=== PATIENT | male | born 1955 | race Caucasian/White ===

== ENCOUNTER 2024-11-30 23:01 | Inpatient (IN) | payer OTHER ==
[2024-11-30] MEDS ORDERED: ACETAMINOPHEN INJECTION 100 ML ONE (23:49)
[2024-11-30] MEDS: ACETAMINOPHEN 1000 MG/100 ML BAG IVPB ONE (23:51)
[2024-11-30] MEDS: SODIUM CHLORIDE 1,000 ML IV STA (23:51)
[2024-11-30 23:52] LABS: BG HCT 41.0 % (35.4-49); EOSINOPHIL % 0.0 % (0.8-7.0); EOSINOPHILS # 0.00 x10^3/uL (0.04-0.54); MEAN CELL VOLUME 93.8 fl (79.0-92.2); MEAN PLT VOLUME 11.8 fl (9.4-12.4); VENOUS BASE EXCESS -2.8 mmol/L (-2-2); VENOUS O2 SATURATION 68.7 % (70-80); VENOUS PCO2 32.7 mmHg (38-52); VENOUS PH 7.42 (7.310-7.410)
[2024-11-30 23:54] LABS: ABSOLUTE IMMATURE GRANULOCYTES 0.13 x10^3/uL (0.0-0.031); BASOPHILS # 0.02 x10^3/uL (0.01-0.08); MCHC 33.2 g/dl (32.3-36.5); MONOCYTE # 1.07 x10^3/uL (0.30-0.82); MONOCYTE % 6.0 % (5.3-12.2); RDW 12.0 % (12.2-16.4)
[2024-12-01 00:01] LABS: INR 1.28 (0.83-1.09); PROTHROMBIN TIME (PATIENT) 13.9 SEC (9.7-13.0)
[2024-12-01 00:04] LABS: ACTIVATED PTT 27.9 SECONDS (25.2-36.5)
[2024-12-01 00:18] LABS: CO2 21.0 mmol/L (21-32); GLUCOSE,RANDOM 223.0 mg/dL (74-106)
[2024-12-01 00:20] LABS: SGPT/ALT 32.0 U/L (13-61)
[2024-12-01 00:22] LABS: CREATININE 0.8 mg/dL (0.55-1.3); SGOT/AST 18.0 U/L (15-37)
[2024-12-01 00:23] LABS: TOT PROT 6.2 g/dl (6.4-8.2)
[2024-12-01 00:24] LABS: ALK PHOS 77.0 U/L (45-117)
[2024-12-01] MEDS ORDERED: CEFTRIAXONE 1 GM/50 ML BAG ONE (01:07)
[2024-12-01 01:10] LABS: URINE APPEARANCE CLEAR; URINE BILIRUBIN NEGATIVE (NEGATIVE); URINE COLOR YELLOW; URINE GLUCOSE (UA) 3+ (NEGATIVE); URINE KETONE 3+ (NEGATIVE); URINE LEUK ESTERASE NEGATIVE (NEGATIVE); URINE NITRITE NEGATIVE (NEGATIVE); URINE PROTEIN TRACE (NEGATIVE); URINE UROBILINOGEN 0.2 mg/dL (0.2-1.0)
[2024-12-01] MEDS: SODIUM CHLORIDE 1,000 ML IV STA (02:52)
[2024-12-01] MEDS: SODIUM CHLORIDE 500 ML IV STA ×3 (04:00→13:19)
[2024-12-01] MEDS: SODIUM CHLORIDE 0.9% 500 ML INFUS.BAG IV ONE (05:52)
[2024-12-01] MEDS ORDERED: NOREPINEPHRINE BITARTRATE 4 MG/4 ML ML IV ONE (06:34)
[2024-12-01] MEDS: NOREPINEPHRINE BITARTRATE 4,000 MCG in DEXTROSE 5%-WATER - 496 ML IV SCH (06:40)
[2024-12-01] MEDS ORDERED: NOREPINEPHRINE BITARTRATE 4,000 MCG in DEXTROSE 5%-WATER - 496 ML IV SCH (06:45)
[2024-12-01 08:17] LABS: MEAN CELL VOLUME 94.8 fl (79.0-92.2)
[2024-12-01 08:19] LABS: MCHC 33.0 g/dl (32.3-36.5); MEAN PLT VOLUME 12.3 fl (9.4-12.4); RDW 12.3 % (12.2-16.4)
[2024-12-01 08:35] LABS: CO2 15 mmol/L (21-32); GLUCOSE,RANDOM 118 mg/dL (74-106)
[2024-12-01 08:37] LABS: CREATININE 0.5 mg/dL (0.55-1.3); SGOT/AST 27 U/L (15-37); SGPT/ALT 28 U/L (13-61)
[2024-12-01 08:40] LABS: ALK PHOS 60 U/L (45-117)
[2024-12-01 08:51] LABS: TOT PROT 4.2 g/dl (6.4-8.2)
[2024-12-01] MEDS: ACETAMINOPHEN 500 MG TABLET (FP) PO PRN (10:49)
[2024-12-01] MEDS: POTASSIUM CHLORIDE ORAL LIQUID 20 MEQ/15 ML PO ONE (10:49)
[2024-12-01] MEDS: BISACODYL 10 MG SUPP.RECT PR ONE (10:50)
[2024-12-01] MEDS: ENOXAPARIN NA (PORCINE) 40 MG/0.4 ML DISP.SYRIN SQ SCH (10:50)
[2024-12-01] MEDS: POLYETHYLENE GLYCOL (HEALTHYLAX) 3350 17 GM PACKET PO SCH (10:50)
[2024-12-01] MEDS: MAGNESIUM 1GM/D5W 100ML - 100 ML IVPB IVPB ONE (10:52)
[2024-12-01] MEDS: KCL 20 MEQ PREMIX BAG 20 MEQ/100 ML INFUS.BAG IVPB SCH (10:59)
[2024-12-01] MEDS: MUPIROCIN 2% TOPICAL OINTMENT FOR DECOLONIZATION NS SCH (11:00)
[2024-12-01] MEDS: ONDANSETRON 4 MG/2 ML VIAL IVPUSH SCH (11:01)
[2024-12-01 11:10] LABS: ARTERIAL BLD GAS O2 SATURATION 96.3 % (95-98); ARTERIAL BLOOD GAS BASE EXCESS -8.4 mmol/L (-2-2); ARTERIAL BLOOD GAS PCO2 30.60 mmHg (35-45); ARTERIAL BLOOD GAS PO2 87.6 mmHg (80-100); BG HCT 40.0 % (35.4-49)
[2024-12-01 11:25] LABS: ALLENS TEST POSITIVE
[2024-12-01] MEDS: SODIUM CHLORIDE 1,000 ML IV SCH (12:23)
[2024-12-01] MEDS: LACTATED RINGERS SOLUTION 1,000 ML/1,000 ML INFUS.BAG IV SCH (14:00)
[2024-12-01 16:23] LABS: CO2 21.0 mmol/L (21-32); GLUCOSE,RANDOM 258.0 mg/dL (74-106)
[2024-12-01 16:25] LABS: CREATININE 0.6 mg/dL (0.55-1.3)
[2024-12-01] MEDS: INSULIN ASPART SLIDING SCALE (NOVOLOG) 1 VIAL SQ SCH (17:42)
[2024-12-01] MEDS: NOREPINEPHRINE 0.9 % NACL 8 MG/250 ML BAG IVPB SCH (17:45)
[2024-12-01] MEDS ORDERED: ONDANSETRON 4 MG/2 ML VIAL IVPUSH PRN (18:46)
[2024-12-01] MEDS: SENNOSIDES 8.8 MG/5 ML SYRUP PO SCH (21:30)
[2024-12-01] MEDS: CHLORHEXIDINE GLUCONATE 4% CLEANSER FOR DECOLONIZATION TP SCH (21:31)
[2024-12-01] MEDS: INSULIN GLARGINE (LANTUS) 100 UNITS/ML UNITS SQ SCH (21:31)
[2024-12-02 06:35] LABS: RDW 12.4 % (12.2-16.4)
[2024-12-02 06:37] LABS: MCHC 32.9 g/dl (32.3-36.5); MEAN CELL VOLUME 93.6 fl (79.0-92.2); MEAN PLT VOLUME 12.2 fl (9.4-12.4)
[2024-12-02 07:01] LABS: CO2 21.0 mmol/L (21-32)
[2024-12-02 07:03] LABS: CREATININE 0.4 mg/dL (0.55-1.3); GLUCOSE,RANDOM 143.0 mg/dL (74-106); SGOT/AST 12.0 U/L (15-37); SGPT/ALT 27.0 U/L (13-61); TOT PROT 4.6 g/dl (6.4-8.2)
[2024-12-02 07:23] LABS: ALK PHOS 103.0 U/L (45-117)
[2024-12-02] MEDS: MAGNESIUM 2GM/50ML STERILE WATER IVPB IVPB ONE (10:04)
[2024-12-02] MEDS: CEFTRIAXONE 1 GM in DEXTROSE 5%-WATER - 50 ML IVPB SCH (10:05)
[2024-12-02] MEDS: NAPH,MB-DB/K PH,MBDB POWDER PACKET PO SCH (10:06)
[2024-12-02] MEDS ORDERED: INSULIN ASPART SLIDING SCALE (NOVOLOG) 1 VIAL SQ ONE (17:05)
[2024-12-02] MEDS: INSULIN REGULAR HUMAN 100 UNITS/ML *VIAL* (FOR IVP) IVPUSH ONE (22:55)
[2024-12-03 07:58] LABS: MCHC 33.1 g/dl (32.3-36.5); MEAN CELL VOLUME 93.5 fl (79.0-92.2); MEAN PLT VOLUME 11.8 fl (9.4-12.4); RDW 12.4 % (12.2-16.4)
[2024-12-03 08:58] LABS: GLUCOSE,RANDOM 154.0 mg/dL (74-106)
[2024-12-03 08:59] LABS: CO2 25.0 mmol/L (21-32)
[2024-12-03 09:01] LABS: CREATININE 0.4 mg/dL (0.55-1.3)
[2024-12-03 09:03] LABS: SGOT/AST 18.0 U/L (15-37); SGPT/ALT 26.0 U/L (13-61); TOT PROT 4.6 g/dl (6.4-8.2)
[2024-12-03 09:06] LABS: ALK PHOS 165.0 U/L (45-117)
[2024-12-03 10:10] LABS: MONOCYTE # 0.53 x10^3/uL (0.30-0.82)
[2024-12-03] MEDS: NAPH,MB-DB/K PH,MBDB POWDER PACKET PO SCH (10:49)
[2024-12-03] MEDS: MAGNESIUM OXIDE 400 MG TABLET (FP) PO ONE (10:49)
[2024-12-03] MEDS: POTASSIUM CHLORIDE TABS 20 MEQ TABLET.ER (FP) PO ONE (10:49)
[2024-12-03] MEDS: DOXYCYCLINE INJECTION 100 MG in DEXTROSE 5%-WATER 100 ML IVPB SCH (14:01)
[2024-12-04] MEDS ORDERED: ONDANSETRON 4 MG/2 ML VIAL IVPUSH PRN (07:23)
[2024-12-04 08:13] LABS: MCHC 34.3 g/dl (32.3-36.5); MEAN CELL VOLUME 92.8 fl (79.0-92.2); MEAN PLT VOLUME 11.9 fl (9.4-12.4); RDW 12.4 % (12.2-16.4)
[2024-12-04 08:25] LABS: CO2 30.0 mmol/L (21-32); CREATININE 0.4 mg/dL (0.55-1.3); GLUCOSE,RANDOM 142.0 mg/dL (74-106)
[2024-12-04 08:27] LABS: TOT PROT 4.7 g/dl (6.4-8.2)
[2024-12-04 08:28] LABS: SGOT/AST 15.0 U/L (15-37); SGPT/ALT 26.0 U/L (13-61)
[2024-12-04 08:34] LABS: ALK PHOS 211.0 U/L (45-117)
[2024-12-04] MEDS ORDERED: MAGNESIUM SULFATE IN WATER 2 GM/50 ML IVPB IVPB ONE (09:48)
[2024-12-04] MEDS: CEFTRIAXONE 1 GM in DEXTROSE 5%-WATER - 50 ML IVPB SCH (10:32)
[2024-12-04] MEDS: POLYETHYLENE GLYCOL (HEALTHYLAX) 3350 17 GM PACKET PO SCH (10:33)
[2024-12-04] MEDS: ACETAMINOPHEN 500 MG TABLET (FP) PO PRN (10:33)
[2024-12-04] MEDS: ENOXAPARIN NA (PORCINE) 40 MG/0.4 ML DISP.SYRIN SQ SCH (10:33)
[2024-12-04] MEDS: INSULIN ASPART SLIDING SCALE (NOVOLOG) 1 VIAL SQ SCH (12:24)
[2024-12-04] MEDS: MAGNESIUM SULFATE IN WATER 2 GM/50 ML IVPB IVPB ONE (14:25)
[2024-12-04] MEDS: CEFAZOLIN (F) 1 GM/D5W 1 GM/50 ML BAG IVPB SCH (17:35)
[2024-12-04] MEDS: SILVER SULFADIAZINE 1% TOP CREAM 400 GM JAR TP SCH (19:09)
[2024-12-04] MEDS: DEXTROSE 5%-NORMAL SALINE 1,000 ML IV SCH (19:30)
[2024-12-04] MEDS: NOREPINEPHRINE BITARTRATE/D5W 8 MG/250 ML BAG IVPB SCH (19:30)
[2024-12-04] MEDS: INSULIN REGULAR 100 UNITS in SODIUM CHLORIDE 99 ML IVPB SCH (19:30)
[2024-12-04] MEDS: INSULIN GLARGINE (LANTUS) 100 UNITS/ML UNITS SQ SCH (21:39)
[2024-12-04] MEDS: SENNOSIDES 8.8 MG/5 ML SYRUP PO SCH (21:40)
[2024-12-05] MEDS: INSULIN ASPART SLIDING SCALE (NOVOLOG) 1 VIAL SQ SCH (06:34)
[2024-12-05 09:08] LABS: ABSOLUTE IMMATURE GRANULOCYTES 0.40 x10^3/uL (0.0-0.031); BASOPHILS # 0.04 x10^3/uL (0.01-0.08); EOSINOPHIL % 0.7 % (0.8-7.0); EOSINOPHILS # 0.09 x10^3/uL (0.04-0.54); MCHC 33.2 g/dl (32.3-36.5); MEAN CELL VOLUME 94.4 fl (79.0-92.2); MEAN PLT VOLUME 11.2 fl (9.4-12.4); MONOCYTE # 0.87 x10^3/uL (0.30-0.82); MONOCYTE % 7.2 % (5.3-12.2); RDW 12.7 % (12.2-16.4)
[2024-12-05 09:51] LABS: CO2 30.0 mmol/L (21-32); GLUCOSE,RANDOM 187.0 mg/dL (74-106)
[2024-12-05 09:54] LABS: CREATININE 0.5 mg/dL (0.55-1.3); SGOT/AST 18.0 U/L (15-37); SGPT/ALT 25.0 U/L (13-61)
[2024-12-05 09:56] LABS: TOT PROT 4.7 g/dl (6.4-8.2)
[2024-12-05 09:57] LABS: ALK PHOS 213.0 U/L (45-117)
[2024-12-05 11:19] LABS: URINE APPEARANCE CLEAR; URINE BILIRUBIN NEGATIVE (NEGATIVE); URINE COLOR YELLOW; URINE GLUCOSE (UA) 3+ (NEGATIVE); URINE KETONE TRACE (NEGATIVE); URINE LEUK ESTERASE NEGATIVE (NEGATIVE); URINE NITRITE NEGATIVE (NEGATIVE); URINE PROTEIN NEGATIVE (NEGATIVE); URINE UROBILINOGEN 1.0 mg/dL (0.2-1.0)
[2024-12-05] MEDS: MAGNESIUM SULFATE IN WATER 2 GM/50 ML IVPB IVPB ONE (11:48)
[2024-12-06] MEDS ORDERED: CEFAZOLIN 1 GM/D5W 1 GM/50 ML BAG IVPB SCH (02:18)
[2024-12-06] MEDS: CEFAZOLIN 1 GM/D5W 1 GM/50 ML BAG IVPB SCH (02:26)
[2024-12-06 10:12] LABS: ABSOLUTE IMMATURE GRANULOCYTES 0.44 x10^3/uL (0.0-0.031); BASOPHILS # 0.05 x10^3/uL (0.01-0.08); EOSINOPHIL % 0.6 % (0.8-7.0); EOSINOPHILS # 0.06 x10^3/uL (0.04-0.54); MCHC 31.6 g/dl (32.3-36.5); MEAN CELL VOLUME 95.3 fl (79.0-92.2); MEAN PLT VOLUME 10.9 fl (9.4-12.4); MONOCYTE # 0.74 x10^3/uL (0.30-0.82); MONOCYTE % 7.1 % (5.3-12.2); RDW 12.7 % (12.2-16.4)
[2024-12-06 12:28] LABS: GLUCOSE,RANDOM 177.0 mg/dL (74-106)
[2024-12-06 12:29] LABS: CO2 31.0 mmol/L (21-32)
[2024-12-06 12:30] LABS: CREATININE 0.4 mg/dL (0.55-1.3)
[2024-12-06 12:31] LABS: SGOT/AST 23.0 U/L (15-37); SGPT/ALT 30.0 U/L (13-61)
[2024-12-06 12:32] LABS: TOT PROT 5.1 g/dl (6.4-8.2)
[2024-12-06 12:34] LABS: ALK PHOS 232.0 U/L (45-117)
[2024-12-06] MEDS: MAGNESIUM SULF 50% (8.12 MEQ/2 ML-1 GM VIAL) IVPB ONE (13:06)
[2024-12-07 08:20] LABS: ABSOLUTE IMMATURE GRANULOCYTES 0.37 x10^3/uL (0.0-0.031); BASOPHILS # 0.06 x10^3/uL (0.01-0.08); MCHC 32.4 g/dl (32.3-36.5); RDW 12.7 % (12.2-16.4)
[2024-12-07 08:32] LABS: EOSINOPHIL % 0.4 % (0.8-7.0); EOSINOPHILS # 0.06 x10^3/uL (0.04-0.54); MEAN CELL VOLUME 95.1 fl (79.0-92.2); MEAN PLT VOLUME 10.4 fl (9.4-12.4); MONOCYTE # 1.07 x10^3/uL (0.30-0.82); MONOCYTE % 7.2 % (5.3-12.2)
[2024-12-07 08:47] LABS: CO2 30.0 mmol/L (21-32); GLUCOSE,RANDOM 166.0 mg/dL (74-106)
[2024-12-07 08:50] LABS: CREATININE 0.5 mg/dL (0.55-1.3); SGPT/ALT 24.0 U/L (13-61)
[2024-12-07 08:51] LABS: SGOT/AST 18.0 U/L (15-37); TOT PROT 5.0 g/dl (6.4-8.2)
[2024-12-07 08:52] LABS: ALK PHOS 233.0 U/L (45-117)
[2024-12-07] MEDS: AMPICILLIN NA/SULBACTAM NA 3 GM in SODIUM CHLORIDE 100 ML IVPB SCH (21:35)
[2024-12-08 07:58] LABS: ABSOLUTE IMMATURE GRANULOCYTES 0.25 x10^3/uL (0.0-0.031); BASOPHILS # 0.05 x10^3/uL (0.01-0.08); EOSINOPHIL % 0.7 % (0.8-7.0); EOSINOPHILS # 0.10 x10^3/uL (0.04-0.54); MCHC 32.2 g/dl (32.3-36.5); MEAN CELL VOLUME 95.1 fl (79.0-92.2); MEAN PLT VOLUME 10.2 fl (9.4-12.4); MONOCYTE # 0.72 x10^3/uL (0.30-0.82); MONOCYTE % 5.1 % (5.3-12.2); RDW 12.6 % (12.2-16.4)
[2024-12-08 08:17] LABS: CO2 29.0 mmol/L (21-32); GLUCOSE,RANDOM 144.0 mg/dL (74-106)
[2024-12-08 08:20] LABS: CREATININE 0.4 mg/dL (0.55-1.3); SGPT/ALT 24.0 U/L (13-61)
[2024-12-08 08:21] LABS: SGOT/AST 22.0 U/L (15-37)
[2024-12-08 08:22] LABS: TOT PROT 5.4 g/dl (6.4-8.2)
[2024-12-08 08:23] LABS: ALK PHOS 251.0 U/L (45-117)
[2024-12-08] MEDS: DOCUSATE SODIUM 100 MG CAPSULE (FP) PO SCH (22:01)
[2024-12-09 09:08] LABS: ABSOLUTE IMMATURE GRANULOCYTES 0.25 x10^3/uL (0.0-0.031); BASOPHILS # 0.06 x10^3/uL (0.01-0.08); EOSINOPHIL % 0.6 % (0.8-7.0); EOSINOPHILS # 0.09 x10^3/uL (0.04-0.54); MCHC 32.0 g/dl (32.3-36.5); MEAN CELL VOLUME 95.5 fl (79.0-92.2); MEAN PLT VOLUME 9.9 fl (9.4-12.4); MONOCYTE # 0.89 x10^3/uL (0.30-0.82); MONOCYTE % 5.8 % (5.3-12.2); RDW 12.6 % (12.2-16.4)
[2024-12-09 10:03] LABS: CO2 29.0 mmol/L (21-32)
[2024-12-09 10:05] LABS: CREATININE 0.4 mg/dL (0.55-1.3)
[2024-12-09 10:06] LABS: GLUCOSE,RANDOM 191.0 mg/dL (74-106); SGPT/ALT 24.0 U/L (13-61); TOT PROT 5.9 g/dl (6.4-8.2)
[2024-12-09 10:07] LABS: ALK PHOS 259.0 U/L (45-117); SGOT/AST 18.0 U/L (15-37)
[2024-12-09] MEDS: VANCOMYCIN/WATER 1250 MG 1,250 MG/250 ML BAG IVPB SCH (14:03)
[2024-12-09 16:06] LABS: C-ANCA <1:20 titer (Neg:<1:20)
[2024-12-09] MEDS: PIPERACILLIN/TAZOB 3.375 GM 3.375 GM in DEXTROSE 5%-WATER - 50 ML IVPB SCH (17:36)
[2024-12-09] MEDS: INSULIN GLARGINE (LANTUS) 100 UNITS/ML UNITS SQ SCH (21:30)
[2024-12-10] MEDS: INSULIN GLARGINE (LANTUS) 100 UNITS/ML UNITS SQ SCH (06:05)
[2024-12-10 08:43] LABS: ABSOLUTE IMMATURE GRANULOCYTES 0.16 x10^3/uL (0.0-0.031); BASOPHILS # 0.04 x10^3/uL (0.01-0.08); EOSINOPHIL % 1.0 % (0.8-7.0); EOSINOPHILS # 0.12 x10^3/uL (0.04-0.54); MCHC 31.7 g/dl (32.3-36.5); MEAN CELL VOLUME 96.6 fl (79.0-92.2); MEAN PLT VOLUME 9.7 fl (9.4-12.4); MONOCYTE # 0.78 x10^3/uL (0.30-0.82); MONOCYTE % 6.5 % (5.3-12.2); RDW 12.5 % (12.2-16.4)
[2024-12-10 09:23] LABS: CO2 30.0 mmol/L (21-32); GLUCOSE,RANDOM 157.0 mg/dL (74-106)
[2024-12-10 09:26] LABS: CREATININE 0.5 mg/dL (0.55-1.3)
[2024-12-10 09:27] LABS: SGOT/AST 13.0 U/L (15-37); SGPT/ALT 20.0 U/L (13-61)
[2024-12-10 09:28] LABS: TOT PROT 6.0 g/dl (6.4-8.2)
[2024-12-10 09:37] LABS: ALK PHOS 221.0 U/L (45-117)
[2024-12-10] MEDS: LOSARTAN POTASSIUM 25 MG TABLET PO SCH (09:44)
[2024-12-10] MEDS: BACITRACIN ZINC 15 GM TUBE TOPICAL OINTMENT TP SCH (17:47)
[2024-12-11 08:40] LABS: ABSOLUTE IMMATURE GRANULOCYTES 0.09 x10^3/uL (0.0-0.031); BASOPHILS # 0.04 x10^3/uL (0.01-0.08); EOSINOPHIL % 1.0 % (0.8-7.0); EOSINOPHILS # 0.13 x10^3/uL (0.04-0.54); MCHC 31.7 g/dl (32.3-36.5); MEAN CELL VOLUME 95.3 fl (79.0-92.2); MEAN PLT VOLUME 9.6 fl (9.4-12.4); MONOCYTE # 0.69 x10^3/uL (0.30-0.82); MONOCYTE % 5.5 % (5.3-12.2); RDW 12.5 % (12.2-16.4)
[2024-12-11 09:09] LABS: CO2 26.0 mmol/L (21-32); GLUCOSE,RANDOM 192.0 mg/dL (74-106)
[2024-12-11 09:12] LABS: CREATININE 0.5 mg/dL (0.55-1.3); SGOT/AST 14.0 U/L (15-37); SGPT/ALT 19.0 U/L (13-61)
[2024-12-11 09:13] LABS: TOT PROT 6.1 g/dl (6.4-8.2)
[2024-12-11 09:14] LABS: ALK PHOS 217.0 U/L (45-117)
[2024-12-11] MEDS: MAGNESIUM 2GM/50ML STERILE WATER IVPB IVPB ONE (15:45)
[2024-12-11] MEDS ORDERED: LACTATED RINGERS SOLUTION 1,000 ML IV SCH (16:15)
[2024-12-11] MEDS ORDERED: ONDANSETRON 4 MG/2 ML VIAL IVPUSH PRN ×3 (16:15→17:08)
[2024-12-11] MEDS ORDERED: MIDAZOLAM HCL 2 MG/2 ML SINGLE DOSE VIAL ONE (16:25)
[2024-12-11] MEDS ORDERED: PROPOFOL 20 ML ONE (16:25)
[2024-12-11] MEDS ORDERED: ONDANSETRON 4 MG/2 ML VIAL ONE (16:35)
[2024-12-11] MEDS ORDERED: DEXAMETHASONE SOD PHOSPHATE 4 MG/1 ML VIAL ONE (16:35)
[2024-12-11] MEDS ORDERED: KETOROLAC TROMETHAMINE 30 MG/1 ML VIAL ONE (16:46)
[2024-12-11] MEDS: LACTATED RINGERS SOLUTION 1,000 ML IV SCH (17:14)
[2024-12-11] MEDS: PIPERACILLIN/TAZOB 3.375 GM 3.375 GM in DEXTROSE 5%-WATER - 50 ML IVPB SCH (17:47)
[2024-12-11] MEDS: POLYETHYLENE GLYCOL (HEALTHYLAX) 3350 17 GM PACKET PO SCH (22:32)
[2024-12-11] MEDS: DOCUSATE SODIUM 100 MG CAPSULE (FP) PO SCH (22:32)
[2024-12-11] MEDS: SENNOSIDES 8.8 MG/5 ML SYRUP PO SCH (22:32)
[2024-12-11] MEDS: INSULIN GLARGINE (LANTUS) 100 UNITS/ML UNITS SQ SCH (22:33)
[2024-12-11] MEDS: INSULIN ASPART SLIDING SCALE (NOVOLOG) 1 VIAL SQ SCH (22:37)
[2024-12-12] MEDS: INSULIN GLARGINE (LANTUS) 100 UNITS/ML UNITS SQ SCH (06:02)
[2024-12-12 08:45] LABS: ABSOLUTE IMMATURE GRANULOCYTES 0.06 x10^3/uL (0.0-0.031); BASOPHILS # 0.03 x10^3/uL (0.01-0.08); EOSINOPHIL % 0.3 % (0.8-7.0); EOSINOPHILS # 0.03 x10^3/uL (0.04-0.54); MCHC 31.8 g/dl (32.3-36.5); MEAN CELL VOLUME 97.2 fl (79.0-92.2); MEAN PLT VOLUME 9.7 fl (9.4-12.4); MONOCYTE # 0.62 x10^3/uL (0.30-0.82); MONOCYTE % 6.4 % (5.3-12.2); RDW 12.3 % (12.2-16.4)
[2024-12-12] MEDS: ENOXAPARIN NA (PORCINE) 40 MG/0.4 ML DISP.SYRIN SQ SCH (09:43)
[2024-12-12] MEDS: LOSARTAN POTASSIUM 25 MG TABLET PO SCH (09:43)
[2024-12-12] MEDS: MULTIVITAMINS (DAILY MVI) TABLET (FP) PO SCH (09:43)
[2024-12-12] MEDS ORDERED: MULTIVITAMINS (DAILY MVI) TABLET (FP) PO SCH (10:00)
[2024-12-12 11:26] LABS: CO2 30.0 mmol/L (21-32); GLUCOSE,RANDOM 211.0 mg/dL (74-106)
[2024-12-12 11:29] LABS: CREATININE 0.5 mg/dL (0.55-1.3); SGOT/AST 11.0 U/L (15-37); SGPT/ALT 18.0 U/L (13-61)
[2024-12-12 11:30] LABS: TOT PROT 5.9 g/dl (6.4-8.2)
[2024-12-12 11:32] LABS: ALK PHOS 187.0 U/L (45-117)
[2024-12-12] MEDS: VANCOMYCIN/WATER 1250 MG 1,250 MG/250 ML BAG IVPB SCH (12:57)
[2024-12-12 14:57] VITALS: RESP 18
[2024-12-12] MEDS: INSULIN ASPART SLIDING SCALE (NOVOLOG) 1 VIAL SQ SCH (16:41)
[2024-12-13 08:26] LABS: ABSOLUTE IMMATURE GRANULOCYTES 0.03 x10^3/uL (0.0-0.031); BASOPHILS # 0.06 x10^3/uL (0.01-0.08); EOSINOPHIL % 0.5 % (0.8-7.0); EOSINOPHILS # 0.06 x10^3/uL (0.04-0.54); MCHC 31.7 g/dl (32.3-36.5); MEAN CELL VOLUME 96.1 fl (79.0-92.2); MEAN PLT VOLUME 9.7 fl (9.4-12.4); MONOCYTE # 0.57 x10^3/uL (0.30-0.82); MONOCYTE % 5.2 % (5.3-12.2); RDW 12.3 % (12.2-16.4)
[2024-12-13] MEDS: ASCORBIC ACID 500 MG TABLET (FP) PO SCH (09:16)
[2024-12-13 09:17] LABS: CO2 30.0 mmol/L (21-32); GLUCOSE,RANDOM 123.0 mg/dL (74-106)
[2024-12-13 09:20] LABS: CREATININE 0.5 mg/dL (0.55-1.3); SGOT/AST 15.0 U/L (15-37); SGPT/ALT 20.0 U/L (13-61); TOT PROT 6.1 g/dl (6.4-8.2)
[2024-12-13 09:22] LABS: ALK PHOS 173.0 U/L (45-117)
[2024-12-13] MEDS: MAGNESIUM OXIDE 400 MG TABLET (FP) PO ONE (11:33)
[2024-12-13] MEDS: PIPERACILLIN/TAZOB 3.375 GM 3.375 GM in DEXTROSE 5%-WATER - 50 ML IVPB SCH (17:14)
[2024-12-13] MEDS: MAGNESIUM OXIDE 400 MG TABLET (FP) PO SCH (21:10)
[2024-12-14 09:31] LABS: ABSOLUTE IMMATURE GRANULOCYTES 0.06 x10^3/uL (0.0-0.031); BASOPHILS # 0.05 x10^3/uL (0.01-0.08); EOSINOPHIL % 0.6 % (0.8-7.0); EOSINOPHILS # 0.06 x10^3/uL (0.04-0.54); MCHC 31.2 g/dl (32.3-36.5); MEAN CELL VOLUME 97.2 fl (79.0-92.2); MEAN PLT VOLUME 9.7 fl (9.4-12.4); MONOCYTE # 0.60 x10^3/uL (0.30-0.82); MONOCYTE % 6.1 % (5.3-12.2); RDW 12.1 % (12.2-16.4)
[2024-12-14 10:16] LABS: CO2 31.0 mmol/L (21-32); GLUCOSE,RANDOM 167.0 mg/dL (74-106)
[2024-12-14 10:19] LABS: CREATININE 0.5 mg/dL (0.55-1.3)
[2024-12-14 10:20] LABS: SGOT/AST 8.0 U/L (15-37); SGPT/ALT 18.0 U/L (13-61)
[2024-12-14 10:21] LABS: TOT PROT 6.6 g/dl (6.4-8.2)
[2024-12-14 10:22] LABS: ALK PHOS 163.0 U/L (45-117)
[2024-12-14] MEDS: MAGNESIUM SULF 50% (8.12 MEQ/2 ML-1 GM VIAL) IVPB ONE (11:31)
[2024-12-14] MEDS: ACETAMINOPHEN 500 MG TABLET (FP) PO PRN (19:55)
[2024-12-15 08:36] LABS: ABSOLUTE IMMATURE GRANULOCYTES 0.02 x10^3/uL (0.0-0.031); BASOPHILS # 0.07 x10^3/uL (0.01-0.08); EOSINOPHIL % 0.9 % (0.8-7.0); EOSINOPHILS # 0.08 x10^3/uL (0.04-0.54); MCHC 31.2 g/dl (32.3-36.5); MEAN CELL VOLUME 97.0 fl (79.0-92.2); MEAN PLT VOLUME 9.6 fl (9.4-12.4); MONOCYTE # 0.56 x10^3/uL (0.30-0.82); MONOCYTE % 6.6 % (5.3-12.2); RDW 12.3 % (12.2-16.4)
[2024-12-15 09:20] LABS: GLUCOSE,RANDOM 180.0 mg/dL (74-106)
[2024-12-15 09:21] LABS: CO2 32.0 mmol/L (21-32)
[2024-12-15 09:23] LABS: CREATININE 0.5 mg/dL (0.55-1.3); SGOT/AST 13.0 U/L (15-37); SGPT/ALT 18.0 U/L (13-61)
[2024-12-15 09:25] LABS: TOT PROT 6.9 g/dl (6.4-8.2)
[2024-12-15 09:26] LABS: ALK PHOS 149.0 U/L (45-117)
[2024-12-15 15:35] VITALS: BP 114/61; PULSE 84; TEMP 98.4
[2024-12-15 15:45] VITALS: BMI 24.9
[2024-12-15] MEDS: AMOX TR/POT CLAV 875MG/125MG TABLETS (FP) PO SCH (17:54)
== END 2024-12-15 19:29 | DRG 853 ==
LOC: JER 23:01 → JERBED 12-01 02:17 → JICU 12-01 09:20 → J8W 12-02 19:35
PROVIDERS: ADMIT Internal Medicine; ATTEND Nurse Practitioner Family
PROC: 05HM33Z Insertion of Infusion Device into Right Internal Jugular Vein, Percutaneous Approach (ICD-10-PCS; 2024-12-01)
PROC: 0JBP0ZZ Excision of Left Lower Leg Subcutaneous Tissue and Fascia, Open Approach (ICD-10-PCS; principal; 2024-12-11 14:30)
DX: A41.9 Sepsis, unspecified organism (principal); E11.10 Type 2 diabetes mellitus with ketoacidosis without coma; R57.1 Hypovolemic shock; R65.21 Severe sepsis with septic shock; N39.0 Urinary tract infection, site not specified; L03.116 Cellulitis of left lower limb; L97.929 Non-pressure chronic ulcer of unspecified part of left lower leg with unspecified severity; I96 Gangrene, not elsewhere classified; E11.52 Type 2 diabetes mellitus with diabetic peripheral angiopathy with gangrene; J06.9 Acute upper respiratory infection, unspecified; R65.20 Severe sepsis without septic shock; E87.6 Hypokalemia
CPT/HCPCS: 0241U-QW; 36415; 36600; 71045-TC-FY; 71260-TC; 73610-TC-LT-FY; 73700-TC-RT; 74177-TC; 80048; 80053; 81003; 82010; 82150; 82803; 82962; 83036; 83520; 83605; 83690; 83735; 84100; 84439; 84443; 84484; 85025; 85610; 85651; 85730; 86038; 86140; 86256; 86850; 86900; 86901; 87040; 87070; 87077; 87086; 87205; 88304-TC; 93005; 93010; 93971-TC; 94760; 97116-GP; 97161-GP; 99285-25; Q9967